=== PATIENT | male | born 1945 | race Caucasian/White ===

== ENCOUNTER 2017-06-10 21:59 | Inpatient (IN) | payer OTHER, MEDICARE ==
[~2017-06-10] VITALS: Ht 176.5 cm; Wt 109.9 kg
[~2017-06-10 21:59] MED LIST: ADULT LOW DOSE81 M1 PO; ADULT LOW STREN81 M3 PO; ALBUTEROL SULF8.5 GM IH; AMIODARONE HCL200 MG PO; ASPIRIN81 M2 PO; CARDIZEM CD,CA240 MG PO; CEFTIN500 MG PO; DAILY VALUE1 EACH PO; ELIQUIS5 MG PO; GABAPENTIN600 MG PO; HYDROMORPHONE HC2 MG PO; HYTRIN2 MG PO; IBUPROFEN800 MG PO; LEVOFLOXACIN500 MG PO; LIPITOR10 MG PO; LISINOPRIL-HCT1 EACH; LOPRESSOR25 MG PO; METFORMIN HCL500 MG PO; MIRALAX17 GM PO; NORCO 5/3251 TABLET PO; PREDNISONE10 MG PO; PREDNISONE20 MG PO; PROAIR HFA8.5 GM IH; SPIRIVA RESPIMAT4 GM IH; SPIRONOLACTONE25 MG PO; STOOL SOFTENER100 MG PO; TERAZOSIN HCL2 MG; ZESTORETIC 10-1 EAC1 PO
[2017-06-10 23:20] LABS: BASOPHIL (%) 0.1 % (0-1); EOSINOPHIL (%) 0.1 % (0-5); HEMATOCRIT 43.8 % (38.0-50.0); HEMOGLOBIN 14.4 G/DL (12.5-16.6); IMMATURE GRANULOCYTE (%) 0.5 % (0.0-0.7); LYMPHOCYTE COUNT 0.8 K/uL (1.0-2.8); MCH 28.6 PG (29.0-34.0); MCHC 32.9 G/DL (30.0-36.0); MCV 87.1 FL (86-99); MONOCYTE (%) 5.3 % (3-12); MONOCYTE COUNT 0.7 K/uL (0-0.8); NEUTROPHIL COUNT 11.8 K/uL (1.8-6.4); PLATELET COUNT 194 K/uL (156-360); RBC DIS.WIDTH-SD 44.7 % (39-53); RED BLOOD COUNT 5.03 M/uL (4.00-5.50); WHITE BLOOD COUNT 13.4 K/uL (4.1-10.2)
[2017-06-10 23:28] LABS: CHLORIDE 92 mEq/L (99-109); POTASSIUM 4.3 mEq/L (3.7-5.4); SODIUM 135 mEq/L (136-147)
[2017-06-10 23:29] LABS: GLUCOSE 154 mg/dL (70-99)
[2017-06-10 23:33] LABS: GFR ESTIMATE (CALCULATED) > 59 mL/min/ (58.99-99999)
[2017-06-10 23:34] LABS: UREA NITROGEN (BUN) 11 mg/dL (9-23)
[2017-06-10 23:41] LABS: TROP-I INTERPRETATION NEGATIVE; TROPONIN-I < 0.01 ng/mL (0.0-0.30)
[2017-06-11 13:18] VITALS: BP 157/63
[2017-06-11 16:07] LABS: BASOPHIL (%) 0.1 % (0-1); EOSINOPHIL (%) 0 % (0-5); HEMATOCRIT 39.8 % (38.0-50.0); HEMOGLOBIN 12.9 G/DL (12.5-16.6); IMMATURE GRANULOCYTE (%) 0.8 % (0.0-0.7); LYMPHOCYTE (%) 5.7 % (15-42); LYMPHOCYTE COUNT 0.6 K/uL (1.0-2.8); MCH 28.3 PG (29.0-34.0); MCHC 32.4 G/DL (30.0-36.0); MCV 87.3 FL (86-99); MONOCYTE (%) 1.2 % (3-12); MONOCYTE COUNT 0.1 K/uL (0-0.8); NEUTROPHIL (%) 92.2 % (45-76); PLATELET COUNT 164 K/uL (156-360); RBC DIS.WIDTH-CV 14.4 % (11.8-14.6); RED BLOOD COUNT 4.56 M/uL (4.00-5.50); WHITE BLOOD COUNT 10.8 K/uL (4.1-10.2)
[2017-06-11 16:28] LABS: CHLORIDE 99 MEQ/L (99-109); POTASSIUM 4.2 MEQ/L (3.7-5.4); SODIUM 137 MEQ/L (136-147)
[2017-06-11 16:34] LABS: GFR ESTIMATE (CALCULATED) > 59 mL/min/ (58.99-99999); UREA NITROGEN (BUN) 14 mg/dL (9-23)
[2017-06-11 16:37] VITALS: BP 118/74
[2017-06-11 16:40] LABS: GLUCOSE 304 mg/dL (70-99)
[2017-06-11 19:10] VITALS: BP 158/79
[2017-06-11 23:18] VITALS: BP 115/75
[2017-06-12 03:30] VITALS: BP 125/65
[2017-06-12 05:26] LABS: POTASSIUM 4.5 mEq/L (3.7-5.4); SODIUM 141 mEq/L (136-147)
[2017-06-12 05:28] LABS: GLUCOSE 248 mg/dL (70-99)
[2017-06-12 05:31] LABS: HEMATOCRIT 38.9 % (38.0-50.0); HEMOGLOBIN 12.8 G/DL (12.5-16.6); MCH 28.8 PG (29.0-34.0); MCHC 32.9 G/DL (30.0-36.0); MCV 87.6 FL (86-99); PLATELET COUNT 192 K/uL (156-360); RBC DIS.WIDTH-CV 14.4 % (11.8-14.6); RBC DIS.WIDTH-SD 45.8 % (39-53); RED BLOOD COUNT 4.44 M/uL (4.00-5.50); WHITE BLOOD COUNT 14.5 K/uL (4.1-10.2)
[2017-06-12 05:32] LABS: GFR ESTIMATE (CALCULATED) > 59 mL/min/ (58.99-99999)
[2017-06-12 05:33] LABS: UREA NITROGEN (BUN) 14 mg/dL (9-23)
[2017-06-12 05:35] LABS: CHLORIDE 103 mEq/L (99-109)
[2017-06-12 07:54] VITALS: BP 144/70
[2017-06-12 11:15] VITALS: BP 134/67
[2017-06-12] MEDS ORDERED: SENNA8.6 MG PO (12:28)
[2017-06-12] MEDS ORDERED: CARTIA XT240 MG PO (12:30)
[2017-06-12] MEDS ORDERED: CORDARONE200 MG PO (12:31)
[2017-06-12] MEDS ORDERED: SPIRONOLACTONE25 MG PO (12:31)
[2017-06-12 13:34] LABS: APPEARANCE CLEAR ((CLEAR)); BILIRUBIN NEGATIVE; BLOOD MODERATE; COLOR YELLOW ((YELLOW)); GLUCOSE (STRIP) >=500; KETONES NEGATIVE; LEUKOCYTES NEGATIVE; NITRITE NEGATIVE; PROTEIN (STRIP) NEGATIVE; UROBILINOGEN 0.2 MG/DL (0.2-1.0)
[2017-06-12 13:36] LABS: BACTERIA NONE SEEN /HPF; EPITHELIAL CELLS RARE /HPF; MUCUS TRACE /LPF; RED BLOOD CELLS 0-5 /HPF (0-5); UCUL ADDED? NO; WHITE BLOOD CELLS 0-5 /HPF (0-5)
[2017-06-12 15:35] VITALS: BP 133/68
[2017-06-12 20:08] VITALS: BP 125/72
[2017-06-12 23:40] VITALS: BP 145/71
[2017-06-13 03:06] VITALS: BP 121/68
[2017-06-13 05:50] LABS: BASOPHIL (%) 0.1 % (0-1); EOSINOPHIL (%) 0 % (0-5); HEMATOCRIT 39.5 % (38.0-50.0); HEMOGLOBIN 12.6 G/DL (12.5-16.6); IMMATURE GRANULOCYTE (%) 1.7 % (0.0-0.7); LYMPHOCYTE COUNT 0.5 K/uL (1.0-2.8); MCH 28.3 PG (29.0-34.0); MCHC 31.9 G/DL (30.0-36.0); MCV 88.6 FL (86-99); MONOCYTE (%) 2.2 % (3-12); MONOCYTE COUNT 0.4 K/uL (0-0.8); NEUTROPHIL COUNT 15.1 K/uL (1.8-6.4); PLATELET COUNT 189 K/uL (156-360); RBC DIS.WIDTH-CV 14.6 % (11.8-14.6); RBC DIS.WIDTH-SD 46.9 % (39-53); RED BLOOD COUNT 4.46 M/uL (4.00-5.50); WHITE BLOOD COUNT 16.2 K/uL (4.1-10.2)
[2017-06-13 06:15] LABS: CHLORIDE 99 MEQ/L (99-109); CREATININE 0.8 MG/DL (0.6-1.3); GFR ESTIMATE (CALCULATED) > 59 mL/min/ (58.99-99999); GLUCOSE 262 mg/dL (70-99); MAGNESIUM 1.9 mg/dl (1.3-2.7); POTASSIUM 4.3 MEQ/L (3.7-5.4); SODIUM 139 MEQ/L (136-147); UREA NITROGEN (BUN) 18 mg/dL (9-23)
[2017-06-13 07:35] VITALS: BP 140/78
[2017-06-13 11:20] VITALS: BP 154/69
[2017-06-13 15:36] VITALS: BP 140/76
[2017-06-14 00:30] VITALS: BP 140/75
[2017-06-14 08:00] VITALS: BP 149/66
[2017-06-14 09:58] LABS: BASOPHIL (%) 0.3 % (0-1); EOSINOPHIL (%) 0 % (0-5); HEMOGLOBIN 13.2 G/DL (12.5-16.6); IMMATURE GRANULOCYTE (%) 3.6 % (0.0-0.7); LYMPHOCYTE (%) 4.6 % (15-42); LYMPHOCYTE COUNT 0.6 K/uL (1.0-2.8); MCH 27.4 PG (29.0-34.0); MCHC 31.4 G/DL (30.0-36.0); MCV 87.3 FL (86-99); MONOCYTE (%) 4.1 % (3-12); MONOCYTE COUNT 0.5 K/uL (0-0.8); NEUTROPHIL (%) 87.4 % (45-76); NEUTROPHIL COUNT 11.2 K/uL (1.8-6.4); PLATELET COUNT 201 K/uL (156-360); RBC DIS.WIDTH-CV 14.6 % (11.8-14.6); RBC DIS.WIDTH-SD 47.4 % (39-53); RED BLOOD COUNT 4.81 M/uL (4.00-5.50); WHITE BLOOD COUNT 12.8 K/uL (4.1-10.2)
[2017-06-14 10:22] LABS: CHLORIDE 99 MEQ/L (99-109); CREATININE 0.9 MG/DL (0.6-1.3); GFR ESTIMATE (CALCULATED) > 59 mL/min/ (58.99-99999); GLUCOSE 259 mg/dL (70-99); SODIUM 139 MEQ/L (136-147); UREA NITROGEN (BUN) 19 mg/dL (9-23)
[2017-06-14 16:00] VITALS: BP 139/66
[2017-06-15 00:06] VITALS: BP 149/68
[2017-06-15 08:00] VITALS: BP 153/70
[2017-06-15] MEDS ORDERED: LEVOFLOXACIN500 MG PO (09:25)
[2017-06-15] MEDS ORDERED: PREDNISONE10 MG PO (09:25)
[2017-06-15] MEDS ORDERED: MUCINEX600 MG PO (09:25)
== END 2017-06-15 11:56 | disposition home or self-care (01) | DRG 190 ==
LOC: EME 21:59 → 4SOUTH 06-11 03:54 → EDOF 06-11 03:54 → ENRESERV 06-11 03:55 → EDOF 06-11 04:00 → ENRESERV 06-11 04:06 → 4SOUTH 06-11 13:05 → ENRESERV 06-13 14:11 → CANRESERV 06-13 14:11 → 4SOUTH 06-15 11:56
PROVIDERS: Emergency Medicine; Hospitalist; Internal Medicine; Physician Assistant
DX: J44.1 Chronic obstructive pulmonary disease with (acute) exacerbation (principal); J96.01 Acute respiratory failure with hypoxia; E87.2 Acidosis; I48.91 Unspecified atrial fibrillation; K21.9 Gastro-esophageal reflux disease without esophagitis; I10 Essential (primary) hypertension; N40.0 Benign prostatic hyperplasia without lower urinary tract symptoms; E11.40 Type 2 diabetes mellitus with diabetic neuropathy, unspecified; K59.00 Constipation, unspecified; R31.29 Other microscopic hematuria; Z96.652 Presence of left artificial knee joint; Z79.01 Long term (current) use of anticoagulants; Z85.118 Personal history of other malignant neoplasm of bronchus and lung; Z92.21 Personal history of antineoplastic chemotherapy; Z92.3 Personal history of irradiation; Z86.73 Personal history of transient ischemic attack (TIA), and cerebral infarction without residual deficits; Z87.891 Personal history of nicotine dependence
CPT/HCPCS: 71045; 74177; 80048; 81003; 82948; 83605; 83735; 84484; 85025; 85027; 87040; 87502; 93005; 94640; 94640 76; 94644; 94799; 99202; 99281; 99285; J1100; J1815; J1956; J2920; J2930; J7030

== ENCOUNTER → 2017-07-14 | Outpatient (CLI) | payer OTHER, MEDICARE ==
[~2017-07-14] MED LIST changes: +CARTIA XT240 MG PO; +CORDARONE200 MG PO; +MUCINEX600 MG PO; +SENNA8.6 MG PO
== END | disposition home or self-care (01) ==
LOC: NUC 09:36
DX: T84.84XA Pain due to internal orthopedic prosthetic devices, implants and grafts, initial encounter (principal)
CPT/HCPCS: 78315; A9503